=== PATIENT | male | born 1945 | race Caucasian/White ===

== ENCOUNTER 2019-05-12 01:25 | Emergency (ER) | payer MEDICARE, BC ==
[2019-05-12] MEDS ORDERED: Sodium Chloride 0.9% 500 ML IV SCH (01:30)
[2019-05-12] MEDS ORDERED: Ondansetron 4 MG/2 ML SDV IVPUSH ONE (01:31)
[2019-05-12] MEDS: Morphine 4 MG/ML Syringe IVPUSH ONE ×2 (01:33→01:45)
[2019-05-12] MEDS ORDERED: fentaNYL 100 MCG/2 ML SDV ONE (01:52)
[2019-05-12] MEDS: fentaNYL 100 MCG/2 ML SDV IVPUSH ONE ×2 (01:55→02:05)
--- NOTE | 2019-05-12 01:55 | EDM.PDOC ---
ED HPI GENERAL MEDICAL PROBLEM - General Chief Complaint: Chest Pain Stated Complaint: epigastric pain Time Seen by Provider: 05/12/19 01:25 Source of Information: Reports: Patient (0), EMS, Family History Limitations: Reports: No Limitations - History of Present Illness INITIAL COMMENTS - FREE TEXT/NARRATIVE: severe epigastric and generalized abdominal pain starting at 1800, progressively has gotten worse. He woke his up to call 911 due to the pain getting worse. EMS transferred patient to ED. Nitro x2 and ASA 324 mg given due EMS having concerns for [place], due to diaphoretic and severe abdominal pain. He does not have any CP or SOB. He has severe abdominal pain that is center of abdominal and spreads throughout his abdominal cavity, it does not radiate into the chest, back, jaw, or arms. He is diaphoretic and moaning in pain. Pain is 10/10 sharp. - Related Data Allergies Allergy/AdvReac Type Severity Reaction Status Date / Time amoxicillin [From Augmentin] Allergy Nausea and Verified 05/12/19 01:37 Vomiting clavulanic acid Allergy Nausea and Verified 05/12/19 01:37 [From Augmentin] Vomiting Jsdpacl-Iae-Vqp Reductase Allergy Cannot Verified 05/12/19 01:37 Inhibitor Remember Sulfa (Sulfonamide Allergy Cannot Verified 05/12/19 01:37 Antibiotics) Remember Home Meds: Home Meds Aspirin [Halfprin] 81 mg PO DAILY 09/30/18 [History] Fenofibrate 160 mg PO DAILY 09/30/18 [History] Krill/Om-3/DHA/EPA/Phospho/Ast [Krill Oil 500 mg Softgel] 500 mg PO DAILY [History] Latanoprost/Pf [Latanoprost 0.005% Eye Drop] 1 drop OP ASDIRECTED 09/30/18 [ History] Losartan/Hydrochlorothiazide [Losartan-HCTZ 50-12.5 MG] 1 tab PO DAILY 09/30/18 [History] Verapamil [Calan SR] 180 mg PO DAILY 09/30/18 [History] metFORMIN HCl [Metformin HCl] 500 mg PO BIDMEALS 09/30/18 [History] Past Medical History HEENT History: Reports: Cataract, Impaired Vision Cardiovascular History: Reports: High Cholesterol, Hypertension Respiratory History: Reports: Sleep Apnea Other Respiratory History: CPAP Gastrointestinal History: Reports: None Musculoskeletal History: Reports: Arthritis Neurological History: Reports: Headaches, Chronic Endocrine/Metabolic History: Reports: Obesity/BMI 30+ - Infectious Disease History Infectious Disease History: Reports: Chicken Pox, Measles, Mumps, Rubella - Past Surgical History HEENT Surgical History: Reports: Cataract Surgery Cardiovascular Surgical History: Reports: None Respiratory Surgical History: Reports: None GI Surgical History: Reports: Colonoscopy Endocrine Surgical History: Reports: None Neurological Surgical History: Reports: None Musculoskeletal Surgical History: Reports: Arthroscopic Knee Social & Family History - Caffeine Use Caffeine Use: Reports: Coffee, Soda Other Caffeine Use: diet ED ROS GENERAL - Review of Systems Review Of Systems: See Below Constitutional: Reports: No Symptoms HEENT: Reports: No Symptoms Respiratory: Reports: No Symptoms Cardiovascular: Reports: No Symptoms Endocrine: Reports: No Symptoms GI/Abdominal: Reports: Abdominal Pain, Other (he had the GI bug 4 days ago, x3 days of diarrhea/vomiting) : Reports: No Symptoms Musculoskeletal: Reports: No Symptoms Skin: Reports: Pallor Neurological: Reports: No Symptoms Psychiatric: Reports: No Symptoms Hematologic/Lymphatic: Reports: No Symptoms ED EXAM, GENERAL - Physical Exam Exam: See Below Exam Limited By: No Limitations General Appearance: Alert, Moderate Distress Ears: Normal External Exam, Normal Canal, Normal TMs Nose: Normal Inspection, Normal Mucosa Throat/Mouth: Other (dry lips) Head: Atraumatic, Normocephalic Neck: Normal Inspection, Supple, Non-Tender, Full Range of Motion, Other (no carotid bruit) Respiratory/Chest: No Respiratory Distress, Lungs Clear, Normal Breath Sounds, Chest Non-Tender Cardiovascular: Normal Peripheral Pulses, Regular Rate, Rhythm, No JVD, No Murmur, No Rub Peripheral Pulses: 2+: Radial (L), Radial (R), Posterior Tibial (L), Posterior Tibial (R), Dorsalis Pedis (L), Dorsalis Pedis (R) GI/Abdominal: Normal Bowel Sounds, Distended, Guarding, Tender, Other ( abdominal bruit noted right below sternal notch) Back Exam: Normal Inspection, Full Range of Motion Extremities: Normal Inspection, Normal Range of Motion, Normal Capillary Refill Neurological: Alert, Oriented, Normal Cognition Psychiatric: Normal Affect, Normal Mood Skin Exam: Warm, Intact, No Rash, Diaphoretic Lymphatic: No Adenopathy EKG INTERPRETATION EKG Date: 05/12/19 Time: 01:20 Rhythm: NSR Rate (Beats/Min): 68 [place]: Normal P-Wave: Present QRS: Normal ST-T: Normal QT: Normal Comparison: NA - No Prior EKG EKG Interpretation Comments: 2nd EKG obtained, 0350, SR with PAC, no ST changes. rate 80 bpm. Course - Vital Signs Text/Narrative:: Severe abdominal pain, morphine was trialed, fentanyl, and last was Dilaudid 0.5 mg IVP slow, which brought his pain down to moderate instead of severe, notes having diarrhea/vomiting 4 days. 500 ml bolus was given. lactic acid was added, WBC slightly elevated along with CRP. Normal lipase. 0215:Hx of HTN, is HTN during ED stay, obesity, male, age 71 mo, heavy smoker, concerned this severe abdominal pain is related to AAA, CT chest was added to the CT abd, to eliminate the patient going to CT scan twice unnecessary extra contrast and radiation exposure. Ct scan results pending. is at bedside, plan of care updated, Repeat EKG, no acute changes from previous, no signs of STEMI or abnormalities, PAC was noted on this EKG. Patient is still having abdominal pain, tele monitor and SpO2 continuous monitored, 2 L NC is being given. Lactate returns 4.5, CT negative for acute findings. Ladarius FLAHERTY called, refers to [facility] for transfer due to the elevated level, spoke with estacada one call, ICU refers patient to medicine services. Report given to hospitalist. EMS were called for patient transfer. Patient left vitals stable. went home, she was updated. patient's pain is controlled before he departed from ED, he is sleeping nicely, easily awake by a soft voice, VSS. EMS to hold home medications, especially his metformin. Last Recorded V/S: Last Vital Signs Temp 98.0 F 05/12/19 05:20 Pulse 78 05/12/19 05:20 Resp 18 05/12/19 05:20 BP 191/79 H 05/12/19 05:20 Pulse Ox 94 L 05/12/19 05:20 - Orders/Labs/Meds Labs: Laboratory Tests 05/12/19 05/12/19 05/12/19 Range/Units 01:29 01:40 01:40 WBC 11.28 H (5.00-10.00) 10^3/uL RBC 4.14 L (4.50-6.00) 10^6/uL Hgb 13.1 (13.0-17.0) g/dL Hct 38.6 L (40.0-52.0) % MCV 93.2 H (82.0-92.0) fL MCH 31.6 H (27.0-31.0) pg MCHC 33.9 (32.0-36.0) g/dL RDW 13.3 (11.5-14.5) % Plt Count 205 (150-400) 10^3/uL MPV 10.8 H (7.4-10.4) fL Sodium 136 (136-145) mmol/L Potassium 3.6 (3.3-5.3) mmol/L Chloride 99 (98-115) mmol/L Carbon Dioxide 19.4 L (21.0-32.0) mmol/L Anion Gap 21.2 H (5-15) mmol/L BUN 24 (6-25) mg/dL Creatinine 1.11 (0.51-1.17) mg/dL Est Cr Clr Drug Dosing 55.08 mL/min Estimated GFR (MDRD) > 60 mL/min Glucose 258 H (75 - 99) mg/dL Lactic Acid 4.5 H (0.4-2.0) mmol/L Calcium 9.7 (8.7-10.3) mg/dL Total Bilirubin 0.8 (0.2-1.0) mg/dL AST 45 H (15-37) U/L ALT 62 (12-78) U/L Alkaline Phosphatase 60 (46-116) IU/L Troponin I < 0.04 (0.00-0.070) ng/mL C-Reactive Protein 6.8 H (0.0-0.9) mg/dL Total Protein 7.6 (6.4-8.2) g/dL Albumin 3.12 (3.00-4.80) g/dL Lipase 66 L (73-393) U/L Meds: Medications Discontinued Medications Generic Name Dose Route Start Last Admin Trade Name Freq PRN Reason Stop Dose Admin Fentanyl Confirm 05/12/19 01:52 Sublimaze Administered 05/12/19 01:53 Dose 100 mcg .ROUTE .STK-MED ONE Fentanyl 100 mcg 05/12/19 01:53 05/12/19 02:05 Sublimaze IVPUSH 05/12/19 01:54 50 mcg ONETIME ONE Administration Hydromorphone HCl Confirm 05/12/19 02:37 05/12/19 03:42 Dilaudid Administered 05/12/19 02:38 Not Given Dose 2 mg .ROUTE .STK-MED ONE Hydromorphone HCl 1 mg 05/12/19 02:40 05/12/19 03:35 Dilaudid IVPUSH 05/12/19 02:41 0.5 mg ONETIME ONE Administration Sodium Chloride 500 mls @ 500 mls/hr 05/12/19 01:30 05/12/19 01:30 Normal Saline IV 500 mls/hr .BOLUS VALERIE Administration Sodium Chloride 100 mls @ 4 mls/sec 05/12/19 03:28 05/12/19 03:36 Normal Saline IV 05/12/19 03:29 4 mls/sec ASDIRECTED ONE Administration Sodium Chloride Confirm 05/12/19 04:11 05/12/19 04:23 Normal Saline Administered 05/12/19 04:12 Not Given Dose 1,000 mls @ as directed .ROUTE .STK-MED ONE Sodium Chloride 1,000 mls @ 999 mls/hr 05/12/19 04:15 05/12/19 04:15 Normal Saline IV 05/12/19 05:15 999 mls/hr .BOLUS ONE Administration Iopamidol 100 ml 05/12/19 03:28 05/12/19 03:36 Isovue-370 (76%) IV 05/12/19 03:29 100 ml ONETIME ONE Administration Morphine Sulfate 4 mg 05/12/19 01:31 05/12/19 01:45 Morphine IVPUSH 05/12/19 01:32 2 mg ONETIME ONE Administration Ondansetron HCl 4 mg 05/12/19 01:31 05/12/19 01:30 Zofran IVPUSH 05/12/19 01:32 4 mg ONETIME ONE Administration Departure - Departure Time of Disposition: 05:39 Disposition: DC/Tfer to Acute Hospital 02 Reason for Transfer *Q: Other (elevated lactate, abdominal unknown cause.) Condition: Critical Clinical Impression: Lactate blood increase Abdominal pain Qualifiers: Abdominal location: generalized Qualified Code(s): R10.84 - Generalized abdominal pain Referrals: Jatinder Mejia MD [Primary Care Provider] - Forms: ED Department Discharge - Problem List & Annotations (1) Abdominal pain SNOMED Code(s): 01800785 Code(s): R10.9 - UNSPECIFIED ABDOMINAL PAIN Status: Acute Qualifiers: Abdominal location: generalized Qualified Code(s): R10.84 - Generalized abdominal pain (2) Lactate blood increase SNOMED Code(s): 8536078 Code(s): R79.89 - OTHER SPECIFIED ABNORMAL FINDINGS OF BLOOD CHEMISTRY Status: Acute
[2019-05-12 02:14] LABS: ANION GAP 21.2 mmol/L (5-15); CHLORIDE,CL 99 mmol/L (98-115); SODIUM,NA 136 mmol/L (136-145)
[2019-05-12] MEDS ORDERED: HYDROmorphone 2 MG/ML SDV ONE (02:37)
[2019-05-12] MEDS: HYDROmorphone 1 MG/ML Syringe IVPUSH ONE ×2 (02:42→03:35)
[2019-05-12] MEDS ORDERED: Iopamidol 755 Mg/ML 100 ML Bottle IV ONE (03:28)
[2019-05-12] MEDS ORDERED: Sodium Chloride 0.9% 100 ML IV ONE (03:28)
[2019-05-12] MEDS ORDERED: Sodium Chloride 0.9% 1,000 ML ONE (04:11)
[2019-05-12] MEDS ORDERED: Sodium Chloride 0.9% 1,000 ML IV ONE (04:15)
--- NOTE | 2019-05-12 11:13 | CT ---
[id number] CT/CT Abdomen Pelvis W IV EXAM: CT Abdomen Pelvis W IV CLINICAL DATA: ABDOMINAL PAIN COMPARISON: NO PREVIOUS SIMILAR EXAM IS AVAILABLE. FINDINGS: The liver and spleen are unremarkable. The kidneys and adrenals show no abnormality. The aorta and pancreas are within normal limits. There is no bowel distention. There is no bowel wall thickening either. There is no free fluid or free air. There is no adenopathy. 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 The pelvis shows no mass, free fluid, abscess, inflammatory change, or adenopathy. The appendix appears normal. IMPRESSION: NO ACUTE PROCESS. SIGNIFICANT ATHEROMATOUS DISEASE. Wilmer Hutton MD 05/12/19 [id number] Thank you for allowing us to participate in the care of your patient.
--- NOTE | 2019-05-12 11:16 | CT ---
[id number] CT/CT Chest W IV Exam: CT Chest W IV Clinical Data: ABDOMINAL PAIN COMPARISON: CORRELATION IS MADE WITH THE CAT SCAN OF THE ABDOMEN PELVIS TO FOLLOW FINDINGS: A 1 cm subcentimeter lymph nodes are seen. The thoracic aorta shows no aneurysm or dissection. The pulmonary arteries show no evidence of pulmonary emboli. There is no infiltrate or effusion. IMPRESSION: NO ACUTE PROCESS. Wilmer Hutton MD 05/12/19 [id number] Thank you for allowing us to participate in the care of your patient.
== END 2019-05-12 05:45 ==
LOC: KA.ED 01:25
DX: R10.84 Generalized abdominal pain (principal); R79.89 Other specified abnormal findings of blood chemistry; E78.00 Pure hypercholesterolemia, unspecified; I10 Essential (primary) hypertension; E66.9 Obesity, unspecified; Z88.1 Allergy status to other antibiotic agents; Z88.2 Allergy status to sulfonamides; Z79.82 Long term (current) use of aspirin; Z79.899 Other long term (current) drug therapy
CPT/HCPCS: 36415; 71260; 74177; 80053; 83605; 83690; 84484; 85027; 86140; 93005; 96361; 96374; 96375; 99285; J1170; J2270; J2405; J3010; J7030; J7040; J7050; Q9967; 99284

== ENCOUNTER 2022-04-01 06:48 | Day surgery (SDC) | payer MEDICARE, OTHER ==
[2022-04-01] MEDS ORDERED: Sodium Chloride 0.9% 10 ML Syringe FLUSH PRN (07:00)
[2022-04-01] MEDS ORDERED: Sodium Chloride 0.9% 1,000 ML IV SCH (07:00)
[2022-04-01] MEDS ORDERED: Propofol 200 MG/20 ML SDV ONE (08:02)
[2022-04-01] MEDS ORDERED: Midazolam 1 MG/ML 2 ML SDV ONE (08:02)
== END 2022-04-01 10:38 | disposition home or self-care (01) ==
LOC: KA.SDS 06:48
PROVIDERS: ATTEND Family Medicine
DX: K52.9 Noninfective gastroenteritis and colitis, unspecified (principal); K64.8 Other hemorrhoids; E11.9 Type 2 diabetes mellitus without complications; I10 Essential (primary) hypertension; G47.33 Obstructive sleep apnea (adult) (pediatric); E66.9 Obesity, unspecified; E78.00 Pure hypercholesterolemia, unspecified; F17.210 Nicotine dependence, cigarettes, uncomplicated; Z68.34 Body mass index [BMI] 34.0-34.9, adult; Z79.899 Other long term (current) drug therapy; Z79.84 Long term (current) use of oral hypoglycemic drugs; Z88.8 Allergy status to other drugs, medicaments and biological substances; Z88.2 Allergy status to sulfonamides; Z98.890 Other specified postprocedural states
CPT/HCPCS: 82947; J2250; J2704; J7030